=== PATIENT | male | born 1945 | race Caucasian/White ===

== ENCOUNTER 2018-02-18 16:51 | Outpatient (CLI) | payer MEDICARE, OTHER ==
--- NOTE | 2018-02-19 12:28 | Ultrasound Report ---
RIGHT LOWER QUADRANT ULTRASOUND: 02/18/2018 CLINICAL INDICATION: Right lower quadrant pain. TECHNIQUE: Real-time scanning was performed with financial sales representative static images obtained. FINDINGS: Ultrasound of the right inguinal region was performed. There is a small right femoral hernia, containing fat, without evidence of bowel herniation. No recurrent inguinal hernia is identified. IMPRESSION: SMALL RIGHT FEMORAL HERNIA, CONTAINING FAT, WITHOUT EVIDENCE OF BOWEL HERNIATION. TD: 02/19/2018 12:26 [facility]
== END 2018-02-18 16:52 | disposition home or self-care (01) ==
LOC: DI 16:51
PROVIDERS: ATTEND Internal Medicine
DX: R10.31 Right lower quadrant pain (principal); K41.90 Unilateral femoral hernia, without obstruction or gangrene, not specified as recurrent
CPT/HCPCS: 76857

== ENCOUNTER 2020-08-10 09:34 | Outpatient (CLI) | payer MEDICARE ==
--- NOTE | 2020-08-10 10:17 | XRAY Report ---
PROCEDURE: Chest 2 View X-Ray INDICATIONS: CHEST PAIN TECHNIQUE: 2 view(s) of the chest. COMPARISON: None. FINDINGS: Surgical changes and devices: None. Lungs and pleura: No pleural effusions or pneumothorax. Lungs are clear. Mediastinum: Mediastinal contours are normal. Heart size is normal. Bones and chest wall: No suspicious bony abnormalities. Soft tissues appear unremarkable. IMPRESSION: No acute finding. Reviewed by: Lennox Bright MD on 08/10/2020 10:16 AM PDT Approved by: Lennox Bright MD on 08/10/2020 10:16 AM PDT Station ID: [id number]
== END 2020-08-10 09:35 | disposition home or self-care (01) ==
LOC: DI.S 09:34
PROVIDERS: ATTEND Internal Medicine
DX: R07.9 Chest pain, unspecified (principal)
CPT/HCPCS: 71046

== ENCOUNTER 2021-04-26 15:01 | Outpatient (CLI) | payer MEDICARE ==
--- NOTE | 2021-04-26 15:27 | CT Report ---
PROCEDURE: Sinuses INDICATIONS: CHRONIC SINUSITIS TECHNIQUE: Noncontrast 3.0 mm axial images acquired from the frontal sinuses to the mid-sella, with coronal and sagittal reformats. For radiation dose reduction, the following was used: automated exposure control , adjustment of mA and/or kV according to patient size. COMPARISON: None. FINDINGS: Image quality: Excellent. Maxillary Sinuses: Asymmetrically decreased size of the left maxillary sinus with partial opacificati on and bony features indicative of chronic/recurrent sinusitis. The left maxillary sinus outflow trac t is patent although mildly narrowed. Ethmoid Air Cells: No bony remodeling or destruction. Sinuses are clear. Sphenoid Sinuses: No bony remodeling or destruction. Sinuses are clear. Frontal Sinuses: No bony remodeling or destruction. Sinuses are clear. Ostiomeatal Complexes: Ostiomeatal complexes are patent. No Perri cells. Miscellaneous: Mild asymmetric elevation of the right fovea ethmoidalis are compared with the left by approximately 2 mm. Moderate deviation of the nasal septum producing a mucosal contact point anterio rly with the inferior nasal turbinate. No natacha bullosa. IMPRESSION: Chronic left maxillary sinusitis as described above. Moderate nasal septal deviation. Reviewed by: Lennox Bright MD on 04/26/2021 3:25 PM PDT Approved by: Lennox Bright MD on 04/26/2021 3:25 PM PDT Station ID: [id number]
== END 2021-04-26 15:02 | disposition home or self-care (01) ==
LOC: DI 15:01
PROVIDERS: ATTEND Internal Medicine
DX: J32.0 Chronic maxillary sinusitis (principal)

== ENCOUNTER 2021-06-19 11:44 | Outpatient (CLI) | payer OTHER, MEDICARE ==
--- NOTE | 2021-06-19 12:07 | XRAY Report ---
PROCEDURE: Cervical Spine 2 View INDICATIONS: POSTTRAUMATIC HEADACHE TECHNIQUE: 4 view(s) of the cervical spine were acquired. COMPARISON: None FINDINGS: Bones: No fractures or dislocations to the T1 level. The lateral masses of C1 appear intact on the odontoid view. No suspicious bony lesions. Note is made of a mild to moderate degree of degenerative C2-C3 through C6-C7. No subluxation is associated. Soft tissues: No prevertebral soft tissue swelli ng. IMPRESSION: Mild to moderate degenerative disc disease without evidence of prior trauma or subluxati on. Currently definite spinal and foraminal stenosis is not found. Reviewed by: Denny Linton MD on 06/19/2021 12:06 PM PDT Approved by: Denny Linton MD on 06/19/2021 12:06 PM PDT Station ID: [id number]
--- NOTE | 2021-06-19 13:50 | CT Report ---
PROCEDURE: HEAD WO INDICATIONS: POSTTRAUMATIC HEADACHE TECHNIQUE: Noncontrast 4.5 mm thick angled axial sections acquired from the foramen magnum to the vertex. For r adiation dose reduction, the following was used: automated exposure control, adjustment of mA and/or kV according to patient size. COMPARISON: None. FINDINGS: Image quality: Excellent. CSF spaces: Basal cisterns are patent. No extra-axial fluid collections. Ventricles are normal in size and shape. Brain: No midline shift. No intracranial masses or hemorrhage. David-white matter interface is norm al. There is mild, diffuse cerebral volume loss. There are mild periventricular and subcortical white matter chronic microvascular ischemic changes. Bilateral internal carotid artery atherosclerotic nissa cification. Skull and face: Calvarium and visualized facial bones are intact, without suspicious lesions. Sinuses: Visualized sinuses and mastoids are clear. IMPRESSION: No acute intracranial disease process. Reviewed by: Jacqueline Wells MD, PhD on 06/19/2021 1:49 PM PDT Approved by: Jacqueline Wells MD, PhD on 06/19/2021 1:49 PM PDT Station ID: [id number]
== END 2021-06-19 11:45 | disposition home or self-care (01) ==
LOC: DI 11:44
PROVIDERS: ATTEND Internal Medicine
DX: G44.309 Post-traumatic headache, unspecified, not intractable (principal); M50.31 Other cervical disc degeneration, high cervical region

== ENCOUNTER 2022-09-08 17:20 | Outpatient (CLI) | payer MEDICARE ==
--- NOTE | 2022-09-08 13:39 | XRAY Report ---
PROCEDURE: Chest 2 View X-Ray INDICATIONS: ACUTE COUGH TECHNIQUE: 2 views of the chest were acquired. COMPARISON: 08/17/2020 FINDINGS: Surgical changes and devices: None. Lungs and pleura: No pleural effusions or pneumothorax. Lungs are clear. Mediastinum: Mediastinal contours are normal. Heart size is normal. Bones and chest wall: No suspicious bony abnormalities. Soft tissues appear unremarkable. IMPRESSION: 1. No acute cardiopulmonary disease. 2. Stable compared to the prior study. Reviewed by: Jeaneth Mccormick MD on 09/08/2022 1:37 PM PST Approved by: Jeaneth Mccormick MD on 09/08/2022 1:37 PM PST Station ID: [id number]
== END 2022-09-08 17:21 | disposition home or self-care (01) ==
LOC: DI.S 17:20
PROVIDERS: ATTEND Emergency Medicine
DX: R05.1 Acute cough (principal)

== ENCOUNTER 2024-04-14 09:11 | Outpatient (CLI) | payer MEDICARE ==
[2024-04-14 14:34] LABS: BASOPHILS # (AUTO) 0.1 10^3/uL (0.0-0.1); BASOPHILS % (AUTO) 1.7 %; EOSINOPHILS # (AUTO) 0.2 10^3/uL (0.0-0.7); HCT - HEMATOCRIT 50.7 % (42.0-52.0); HGB - HEMOGLOBIN 15.9 g/dL (14.0-18.0); LYMPHOCYTES # (AUTO) 1.3 10^3/uL (1.5-3.5); LYMPHOCYTES % (AUTO) 26.1 %; MEAN CORPUSCULAR HEMOGLOBIN 28.5 pg (27.0-31.0); MEAN CORPUSCULAR HGB CONC 31.4 g/dL (32.0-36.0); MEAN PLATELET VOLUME 9.6 fL (7.4-11.4); MONOCYTES # (AUTO) 0.7 10^3/uL (0.0-1.0); MONOCYTES % (AUTO) 14.4 %; NEUTROPHILS # (AUTO) 2.6 10^3/uL (1.5-6.6); NEUTROPHILS % (AUTO) 53.4 %; PLT - PLATELET COUNT 283 10^3/uL (130-450); RED BLOOD COUNT 5.57 10^6/uL (4.70-6.10); RED CELL DISTRIBUTION WIDTH 12.7 % (12.0-15.0); WHITE BLOOD COUNT 4.8 x10^3/uL (4.8-10.8)
[2024-04-14 14:49] LABS: INR 1.2 (0.8-1.2); PT - PROTHROMBIN TIME 12.8 secs (9.9-12.6)
[2024-04-14 14:50] LABS: CALCIUM 9.6 mg/dL (8.5-10.3); CREATININE 1.1 mg/dL (0.6-1.3); POTASSIUM 4.6 mmol/L (3.5-4.5)
== END 2024-04-14 09:12 | disposition home or self-care (01) ==
LOC: LAB.S 09:11
PROVIDERS: ATTEND Internal Medicine Cardiovascular Disease
DX: I25.110 Atherosclerotic heart disease of native coronary artery with unstable angina pectoris (principal)
CPT/HCPCS: 36415; 80048; 85025; 85610